=== PATIENT | female | born 1990 | race African-American/Black ===

== ENCOUNTER 2016-10-20 15:32 | Emergency (ER) | payer OTHER ==
[~2016-10-20] VITALS: Ht 180.3 cm; Wt 63.5 kg
[~2016-10-20 15:32] MED LIST: DEPAKOTE ER500 MG PO; MELATONIN3 MG PO; RESTORIL15 MG PO; SAPHRIS10 MG SL; SAPHRIS5 MG SUBLING
[2016-10-20 20:56] VITALS: BP 0/0
== END 2016-10-20 20:57 | disposition designated cancer center or children's hospital (05) ==
LOC: ER 15:32
DX: S70.12XA Contusion of left thigh, initial encounter (principal); S70.11XA Contusion of right thigh, initial encounter; Z21 Asymptomatic human immunodeficiency virus [HIV] infection status; Z95.0 Presence of cardiac pacemaker; Z04.41 Encounter for examination and observation following alleged adult rape; T74.21XA Adult sexual abuse, confirmed, initial encounter; Y93.89 Activity, other specified; Y92.89 Other specified places as the place of occurrence of the external cause; Y99.9 Unspecified external cause status